=== PATIENT | male | born 1970 | race Caucasian/White ===

== ENCOUNTER 2021-11-20 16:46 | Emergency (ER) | payer MEDICARE, MEDICAID ==
[2021-11-20 19:00] LABS: HEMOGLOBIN 19.3 gm/dl (14.0-17.5); RED BLOOD COUNT 6.11 M/UL (4.20-5.50); WHITE BLOOD COUNT 12.7 K/UL (4.5-11.0)
[2021-11-20 19:23] LABS: BUN/CREATININE RATIO 19 (0-10)
== END 2021-11-21 01:31 | disposition home or self-care (01) ==
LOC: ER1 16:46
PROVIDERS: Emergency Medicine
DX: I10 Essential (primary) hypertension (principal); E11.40 Type 2 diabetes mellitus with diabetic neuropathy, unspecified
CPT/HCPCS: 71045; 80053; 82550; 82553; 84484; 85025; 93005; 99284; J0780; J2270